=== PATIENT | male | born 1975 | race Caucasian/White ===

== ENCOUNTER → 2020-05-19 | Outpatient (CLI) | payer OTHER ==
--- NOTE | 2020-05-19 08:44 | RAD ---
Nonvascular soft tissue ultrasound. INDICATION: Lump on left mu-ism. TECHNIQUE: Grayscale and color Doppler imaging was performed of the area of palpable concern in the l eft temporal region. FINDINGS: An oval, parallel orientation 1.0 x 0.8 x 0.6 cm circumscribed mass with a prominent vessel coursing through it is identified in the area of palpable concern within the skin. The mass is compressible wi th the ultrasound probe. The vessel appears to demonstrate venous flow. IMPRESSION: Findings most suggestive of a venous varix in the left temporal region. Recommend clinical follow-up and appropriate management. Electronically signed by: Julissa Patel MD (05/19/2020 8:42 AM) [id number]
== END ==
LOC: US 07:47 → EEVIPCON 07:47
PROVIDERS: ATTEND Preventive Medicine Occupational Medicine
DX: G93.89 Other specified disorders of brain (principal); J32.1 Chronic frontal sinusitis; I86.8 Varicose veins of other specified sites
CPT/HCPCS: 76881